=== PATIENT | male | born 1970 | race Caucasian/White ===

== ENCOUNTER 2019-07-06 16:41 | Emergency (ER) | payer BC ==
[2019-07-06] MEDS: Aspirin 81 MG Tab.Chew PO ONE (16:50)
[2019-07-06 16:57] VITALS: BP 166/101; PULSE 89
[2019-07-06] MEDS ORDERED: Sodium Chloride 0.9% 10 ML Syringe FLUSH PRN (17:00)
[2019-07-06] MEDS: GI Cocktail Oral Solution 30 ML PO ONE (17:13)
--- NOTE | 2019-07-06 17:15 | EDM.PDOC ---
ED HPI GENERAL MEDICAL PROBLEM - General Chief Complaint: Chest Pain Stated Complaint: CHEST TIGHTNESS Time Seen by Provider: 07/06/19 16:54 Source of Information: Reports: Patient History Limitations: Reports: No Limitations - History of Present Illness INITIAL COMMENTS - FREE TEXT/NARRATIVE: Fausto is a 49 y/o male who presents to the ER with "chest tightness" that he has had now for 2 days. He has had some issues with GERD in the past, but this seems worse and the pain goes up into his neck. The pressure seems stronger now than before. He is on a hunting trip with his brother and 3 sons and is worried about any cardiac condition if he is out hunting. He reports on the drive here and last night while unloading luggage the chest discomfort seemed to intensify. He does admit some anxiety about his sx. Movement or exercise doses not necessarily make the pain any worse. No diaphoresis or nausea associated with the sx. He does have a known history of elevated BP, but has not been on meds and reports trying to manage it without meds. - Related Data Allergies Allergy/AdvReac Type Severity Reaction Status Date / Time Penicillins Allergy Cannot Verified 07/06/19 16:59 Remember Home Meds: Home Meds . [No Known Home Meds] 07/06/19 [History] Past Medical History Cardiovascular History: Reports: Hypertension Psychiatric History: Reports: Anxiety Social & Family History - Tobacco Use Smoking Status *Q: Never Smoker - Alcohol Use Days Per Week of Alcohol Use: 7 Number of Drinks Per Day: 6 Total Drinks Per Week: 42 Date of Last Drink: 07/05/19 - Recreational Drug Use Recreational Drug Use: No Review of Systems - Review of Systems Review Of Systems: See Below ED EXAM, GENERAL - Physical Exam Exam: See Below Course - Vital Signs Text/Narrative:: The patient was seen on arrival to the ER. Labs and EKG ordered. He as given ASA per chest pain protocol by RN prior to [employer] seeing patient. GI cocktail was ordered. Lab results were reviewed. Noted elevated LFTs. Labs were discussed with the patient. He reported complete resolution of symptoms. He was given discharge instructions and sent home in stable condition. Last Recorded V/S: Last Vital Signs Temp 36.7 C 07/06/19 16:48 Pulse 89 07/06/19 16:48 Resp 18 07/06/19 16:48 BP 166/101 H 07/06/19 16:48 Pulse Ox 96 07/06/19 16:48 - Orders/Labs/Meds Orders: Active Orders 24 hr Category Date Time Status Sodium Chloride 0.9% [Saline Flush] Med 07/06/19 17:00 Active 10 ml FLUSH ASDIRECTED PRN Saline Lock Insert [OM.PC] Stat Oth 07/06/19 17:01 Ordered Medication Orders Sodium Chloride (Saline Flush) 10 ml FLUSH ASDIRECTED PRN PRN Reason: Keep Vein Open Labs: Laboratory Tests 07/06/19 07/06/19 07/06/19 Range/Units 17:34 17:34 17:34 WBC 5.3 (4.0-10.0) x10^3/uL RBC 4.62 (4.5-6.0) x10^6/uL Hgb 15.1 (14.0-18.0) g/dL Hct 44.4 (40.0-52.0) % MCV 96.1 H (78.0-93.0) fL MCH 32.7 H (26.0-32.0) pg MCHC 34.0 (32.0-36.0) g/dL RDW Coeff of Rivera 13.3 (10.0-15.0) % Plt Count 219 (130-400) x10^3/uL Neut % (Auto) 61.4 (50.0-80.0) % Lymph % (Auto) 25.2 (25.0-50.0) % [place] % (Auto) 12.0 H (2.0-11.0) % Eos % (Auto) 0.6 (0.0-4.0) % Baso % (Auto) 0.8 (0.2-1.2) % PT 10.4 (10.0-12.8) SEC INR 0.9 L (2.0-3.5) Sodium 144 (69-191) mmol/L Potassium 3.9 (1.5-9.9) mmol/L Chloride 103 (54-184) mmol/L Carbon Dioxide 30 (21-32) mmol/L Anion Gap 14.9 (10-20) mmol/L BUN 14 (7-18) mg/dL Creatinine 1.2 (0.70-1.30) mg/dL Est Cr Clr Drug Dosing TNP Estimated GFR (MDRD) > 60 Glucose 93 (74-106) mg/dL Calcium 10.0 (8.5-10.1) mg/dL Corrected Calcium 9.76 (8.5-10.1) mg/dL Total Bilirubin 0.9 (0.2-1.0) mg/dL AST 215 H (15-37) U/L ALT 200 H (16-63) U/L Alkaline Phosphatase 66 (46-116) U/L Creatine Kinase 230 (39-308) U/L Troponin I < 0.017 (<=0.056) ng/mL Total Protein 8.3 H (6.4-8.2) g/dL Albumin 4.3 (3.4-5.0) g/dL Globulin 4.0 Albumin/Globulin Ratio 1.08 Ethyl Alcohol < 3 (0-3) mg/dL Meds: Medications Generic Name Dose Route Start Last Admin Trade Name Freq PRN Reason Stop Dose Admin Sodium Chloride 10 ml 07/06/19 17:00 Saline Flush FLUSH ASDIRECTED PRN Keep Vein Open Discontinued Medications Generic Name Dose Route Start Last Admin Trade Name Freq PRN Reason Stop Dose Admin Al Hydroxide/Mg Hydroxide 30 ml 07/06/19 17:01 07/06/19 17:13 Gi Cocktail PO 07/06/19 17:02 30 ml ONETIME ONE Administration Aspirin 324 mg 07/06/19 17:04 07/06/19 16:50 Aspirin PO 07/06/19 17:05 324 mg ONETIME ONE Administration Departure - Departure Time of Disposition: 18:35 Disposition: Home, Self-Care 01 Condition: Good Clinical Impression: GERD (gastroesophageal reflux disease), Elevated LFTs - Discharge Information *PRESCRIPTION DRUG MONITORING PROGRAM REVIEWED*: Not Applicable *COPY OF PRESCRIPTION DRUG MONITORING REPORT IN PATIENT YVONNE: Not Applicable Instructions: Liver Function Tests, Gastroesophageal Reflux Disease, Adult Referrals: Apolonia Romano NP [Emergency Provider] - Forms: ED Department Discharge Additional Instructions: -Avoid Alcohol and consider stopping. -Also decreasing alcohol, caffeine, and fatty greasy foods may alleviate your symptoms. -You may use over the counter antacids or Omeprazole for your symptoms. -Follow up with your PCP in 6-8 weeks to recheck your liver function tests. -Return to the ER with any further concerns - Problem List & Annotations (1) GERD (gastroesophageal reflux disease) SNOMED Code(s): 442882258 Code(s): K21.9 - GASTRO-ESOPHAGEAL REFLUX DISEASE WITHOUT ESOPHAGITIS Status: Acute Current Visit: Yes (2) Elevated LFTs SNOMED Code(s): 345765776, 192454448 Code(s): R94.5 - ABNORMAL RESULTS OF LIVER FUNCTION STUDIES Status: Acute Current Visit: Yes - My Orders Last 24 Hours: My Active Orders 07/06/19 17:00 Sodium Chloride 0.9% [Saline Flush] 10 ml FLUSH ASDIRECTED PRN 07/06/19 17:01 Saline Lock Insert [OM.PC] Stat - Assessment/Plan Last 24 Hours: My Active Orders 07/06/19 17:00 Sodium Chloride 0.9% [Saline Flush] 10 ml FLUSH ASDIRECTED PRN 07/06/19 17:01 Saline Lock Insert [OM.PC] Stat Assessment:: 1)Chest Pain ruled out Cardiac Etiology 2)GERD 3)Elevated LFTs
[2019-07-06 18:16] LABS: ANION GAP 14.9 mmol/L (10-20); CHLORIDE,CL 103 mmol/L (54-184); SODIUM,NA 144 mmol/L (69-191)
== END 2019-07-06 18:53 | disposition home or self-care (01) ==
LOC: VM.ED 16:41
DX: K21.9 Gastro-esophageal reflux disease without esophagitis (principal); R79.89 Other specified abnormal findings of blood chemistry; I10 Essential (primary) hypertension; Z88.0 Allergy status to penicillin
CPT/HCPCS: 36415; 80053; 82550; 84484; 85025; 85610; 93005; 99285-25; A9270-GY; G0480